=== PATIENT | female | born 1985 | race Two or more races ===

== ENCOUNTER 2018-03-11 17:24 | Emergency (ER) | payer OTHER ==
[2018-03-11 17:32] VITALS: BP 104/77; PULSE 78; TEMP 98.7; BMI 33.1
[2018-03-11] MEDS ORDERED: KETOROLAC TROMETHAMINE 30 MG/1 ML VIAL IM ONE (17:55)
[2018-03-11] MEDS ORDERED: KETOROLAC TROMETHAMINE 30 MG/1 ML VIAL ONE (17:58)
--- NOTE | 2018-03-11 18:01 | PDOC ---
History of Present Illness - General Chief Complaint: Pain, Acute Stated Complaint: PAIN Time Seen by Provider: 03/11/18 17:41 History Source: Patient Exam Limitations: No Limitations Past History - Past Medical History Allergies/Adverse Reactions: Allergies Allergy/AdvReac Type Severity Reaction Status Date / Time No Known Allergies Allergy Verified 03/11/18 17:57 Home Medications: Ambulatory Orders Diclofenac Potassium 50 mg PO ASDIR 03/11/18 Duloxetine HCl 60 mg PO BID 03/11/18 COPD: No - Immunization History Immunization Up to Date: Yes - Suicide/Smoking/Psychosocial Hx Smoking History: Never smoked Information on smoking cessation initiated: No Hx Alcohol Use: No Drug/Substance Use Hx: No *Physical Exam - Vital Signs Last Vital Signs Temp Pulse Resp BP Pulse Ox 98.7 F 78 16 104/77 98 03/11/18 17:29 03/11/18 17:29 03/11/18 17:29 03/11/18 17:29 03/11/18 17:29 - Physical Exam General Appearance: No: Apparent Distress Respiratory/Chest: positive: Lungs Clear, Normal Breath Sounds. negative: Respiratory Distress Cardiovascular: positive: Regular Rhythm, Regular Rate, S1, S2. negative: Murmur Gastrointestinal/Abdominal: positive: Normal Bowel Sounds, Soft. negative: Tender, Distended, Guarding, Rebound Extremity: positive: Normal Inspection. negative: Swelling Integumentary: positive: Normal Color Neurologic: positive: Alert, Normal Mood/Affect Moderate Sedation - Procedure Monitoring Vital Signs: Procedure Monitoring Vital Signs Temperature 98.7 F 03/11/18 17:29 Pulse Rate 78 03/11/18 17:29 Respiratory Rate 16 03/11/18 17:29 Blood Pressure 104/77 03/11/18 17:29 O2 Sat by Pulse Oximetry (%) 98 03/11/18 17:29 Medical Decision Making - Medical Decision Making 32 y/o F hx of fibromyalgia, sickle cell trait, anemia presents with fibromyalgia flare-up from yesterday. Currently taking Diclofenac, Tylenol and Duloxetine for her fibromyalgia; patient follows with Dr. David Ibrahim. She last saw him 01/17 and was told her KENA was more elevated and was started on Prednisone taper x 3 weeks. However, patient was unable to tolerate the prednisone well as it made her naseous. She told Dr. Ibrahim and he advised to f/u with her end of February. Denies fever, sob, cp, abd pain, n/v/d. Fibromyalgia flare - will give Toradol Advised continue f/u with her windlasser 03/11/18 17:58 *DC/Admit/Observation/Transfer Diagnosis at time of Disposition: Fibromyalgia - Discharge Dispostion Disposition: HOME Condition at time of disposition: Stable Decision to Admit order: No - Referrals - Patient Instructions Printed Discharge Instructions: Fibromyalgia Additional Instructions: Thank you for choosing [facility]. It was a pleasure taking care of you. Please continue follow-up with your windlasser for further management of your fibromyalgia. Return to the Emergency Department if your symptoms worsen or persist or have other concerning symptoms. - Post Discharge Activity
== END 2018-03-11 18:40 | disposition home or self-care (01) ==
LOC: JERFT 17:24
PROC: 3E0233Z Introduction of Anti-inflammatory into Muscle, Percutaneous Approach (ICD-10-PCS; principal; 2018-03-11)
DX: M79.7 Fibromyalgia (principal); D57.3 Sickle-cell trait
CPT/HCPCS: 99281-25